=== PATIENT | male | born 1945 | race Caucasian/White ===

== ENCOUNTER → 2017-11-21 10:15 | Outpatient (CLI) | payer MEDICARE, SELFPAY ==
--- NOTE | 2017-11-21 | DI.US.S_ITS ---
PROCEDURE: US ABDOMEN COMPLETE INDICATIONS: CHRONIC VIRAL HEP C TECHNIQUE: Real-time scanning was performed of the abdominal and retroperitoneal organs, with image documentation. COMPARISON: None. FINDINGS: Liver: Liver is normal in size and homogeneous in echotexture. There are 2 liver cysts, one superiorly on the right measuring up to 1.2 cm and the second inferiorly at the left hepatic lobe measuring only 7 mm area there is a focal hyperechoic structure at the margin of the falciform ligament measuring 8 x 7 x 9 mm anteriorly, most likely a focal small hemangioma Gallbladder: The gallbladder appears normal Biliary ducts: Intrahepatic bile ducts are non-dilated. Extrahepatic bile duct caliber measures 8.0 mm. Normal is 6-7 mm or less in diameter, or 10 mm or less post-cholecystectomy. Pancreas: Visualized portions of the pancreas are sonographically normal. Spleen: Spleen is normal in size and homogeneous in echotexture. Kidneys: Kidneys are normal in size and echotexture. Right kidney measures 10.9 cm long; left kidney measures 11.5 cm long. No hydronephrosis or nephrolithiasis. No solid masses. 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 Aorta: Visualized aorta is normal in caliber at less than 3 cm. Iliacs: Not seen due to bowel gas IVC: Intrahepatic inferior vena cava is patent. Miscellaneous: No free abdominal fluid. IMPRESSION: A small anterior rounded 7 x 8 x 9 mm subcapsular hyperechoic focus within the liver parenchyma adjacent to the fissure for the falciform ligament is most likely a hemangioma. No additional similar hepatic structures are found. If clinically desired this could be further assessed in 3-6 months by ultrasound to confirm stability over time. 2 simple hepatic cysts are seen measuring up to 1.2 cm in maximal dimension. No followup recommended. 3. Incidental note made of a hyperechoic small focus measuring up to 10 mm at the superior right renal margin consistent with a small angiomyolipoma. No followup recommended. 4. No evidence of hepatic cirrhosis or portal hypertension. Dictated by: Pollo Waddell M.D. on 11/21/2017 at 10:55 Approved by: Pollo Waddell M.D. on 11/21/2017 at 11:29
== END ==
PROVIDERS: Visit Provider Internal Medicine
DX: B18.2 Chronic viral hepatitis C (principal); K76.89 Other specified diseases of liver
CPT/HCPCS: 76700

== ENCOUNTER 2019-03-31 12:03 | Emergency (ER) | payer OTHER, SELFPAY ==
[2019-03-31 12:11] VITALS: BP 156/67; PULSE 70; RESP 16; TEMP 37.2; O2SAT 94; BMI 19.0
[2019-03-31] MEDS: TET,DIPH,PERTUSS(ACELL),VAC/PF 0.5 ML SYRINGE IM (12:26)
[2019-03-31 13:10] VITALS: BP 182/77; PULSE 94; RESP 18; O2SAT 96
[2019-03-31] MEDS: BACITRACIN OINT 0.9 GM PCKT 1 APPLIC TOP (13:29)
[2019-03-31 13:42] VITALS: BP 177/78; PULSE 65; O2SAT 96
--- NOTE | 2019-03-31 13:45 | ED.WOUNDLAC ---
HPI - Wound/Laceration <BYRAN Cardozo - Last Filed: 03/31/19 14:17> General Chief Complaint: Wound/Laceration Stated Complaint: Cut Left Index Finger Time Seen by Provider: 03/31/19 12:15 Source: patient Mode of arrival: Ambulatory Limitations: no limitations History of Present Illness HPI narrative: This is a 73-year-old gentleman, smoker, who presents to ED with avulsion wound on his left index middle phalange 30 minutes prior coming into ED from a clean scissor. Patient reports unknown last tetanus immunization. Right dominant hand. Patient was cutting a fabric with a scissor and accidentally cut his affected finger. Patient denies difficulty with flexing and extending his fingers. Reports intact sensation. No active bleeding at this time and patient applied Band-Aid before coming into ED. Related Data Home Medications Medication Instructions Recorded Confirmed albuterol sulfate 2 puff INHALATION Q6H PRN 03/31/19 03/31/19 budesonide-formoterol [Symbicort] 2 puff INHALATION BID 03/31/19 03/31/19 doxazosin 8 mg PO QPM 03/31/19 03/31/19 doxycycline monohydrate 100 mg PO BIDX7 03/31/19 03/31/19 finasteride 5 mg PO DAILY 03/31/19 03/31/19 folic acid 1 mg PO DAILY 03/31/19 03/31/19 mirtazapine 45 mg PO QPM 03/31/19 03/31/19 mupirocin 1 applic TOPICAL DIRECTED 03/31/19 pramipexole 0.5 mg PO QPM 03/31/19 03/31/19 tiotropium bromide [Spiriva with 18 mcg INHALATION DAILY 03/31/19 03/31/19 HandiHaler] tramadol 50 mg PO BID PRN 03/31/19 03/31/19 Allergies Allergy/AdvReac Type Severity Reaction Status Date / Time No Known Drug Allergies Allergy Verified 03/31/19 12:11 Review of Systems <BRYAN Cardozo - Last Filed: 03/31/19 14:17> Review of Systems Narrative: General: Denies fever, chills, fatigue, malaise, sweats. HEENT: Denies sinus pain, ear pain, sore throat, difficulty swallowing, dizziness. Respiratory: Denies dyspnea, cough, wheezing, hemoptysis, sputum. Cardiovascular: Denies chest pain, palpitations, orthopnea, edema. Gastrointestinal: Denies nausea, vomiting, abdominal pain, diarrhea, constipation, melena. : Denies dysuria, frequency, incontinence, hematuria, urinary retention. Musculoskeletal: Denies weakness, joint pain or bony pain. Skin: See HPI Neurologic: Denies weakness, headache, numbness, change in speech, confusion, seizures, incoordination. Psychiatric: No concerning psychosocial issues. 12-point review of systems is negative except for those stated above. Patient History <BRYAN Cardozo - Last Filed: 03/31/19 14:17> Medical History Back pain (Acute) BPH (benign prostatic hyperplasia) (Acute) COPD (chronic obstructive pulmonary disease) (Acute) Surgical History History of colonoscopy (Acute) Social History Smoking Status: Current every day smoker Smoking Status: Current every day smoker alcohol intake frequency: 0-2 drinks per day Substance Use Type: does not use Exam <BRYAN Cardozo - Last Filed: 03/31/19 14:17> Narrative Exam Narrative: General appearance: well developed, well nourished, in no acute distress. Head: normocephalic, atraumatic, no scalp lesions, non-tender. ENT: Bilateral auditory canals and tympanic membranes clear. Hearing grossly intact. Nose without bleeding, purulent discharge, septal hematoma or deviation. Turbinate without erythema or swelling. Facial sinuses nontender to palpate. Mucous membrane moist, no mucosal lesion. Throat without erythema, tonsillar hypertrophy or exudate. Uvula in midline, airway patent. Neck/Thyroid: neck supple, full range of motion, no visible masses or meningeal signs. No JVD, non-tender without lymphadenopathy. Skin: 1cm avulsion injury to left hand index middle radial aspect of phalange. no suspicious rashes, lesions over other visible areas. Warm and dry and appropriate color for ethnicity. Heart: no clubbing, no cyanosis, no edema. Lungs: Breathing even and unlabored. No stridor. No accessory muscles used. Able to speak in full sentences. Chest: normal shape and expansion. Abdomen: non-obese, non-distended. Neurologic: alert and oriented. Cognitive exam, [employer] and PNS grossly intact on informal exam. Psych: good eye contact, normal affect. Initial Vital Signs Initial Vital Signs: Vital Signs Temperature 99.0 F 03/31/19 12:11 Pulse Rate 70 03/31/19 12:11 Respiratory Rate 16 03/31/19 12:11 Blood Pressure 156/67 H 03/31/19 12:11 Pulse Oximetry 94 03/31/19 12:11 Extrem Left upper extremity: hand Details: abnormal to inspection, neurosensory exam normal, tendon exam normal, tenderness, vascular exam Details: radial pulse present and normal capillary refill, normal ROM of fingers and other ( in radial aspect middle phalanx of 2nd digit); no foreign bodies <Kobe Flanagan DO - Last Filed: 03/31/19 14:18> Initial Vital Signs Initial Vital Signs: Vital Signs Temperature 99.0 F 03/31/19 12:11 Pulse Rate 70 03/31/19 12:11 Respiratory Rate 16 03/31/19 12:11 Blood Pressure 156/67 H 03/31/19 12:11 Pulse Oximetry 94 03/31/19 12:11 Scores <BRYAN Cardozo - Last Filed: 03/31/19 14:17> GCS Ariane coma scale eye opening: Spontaneous [place] coma scale verbal response: Orientated [place] coma scale motor response: Obey commands [place] coma scale total score: 15 Course <BRYAN Cardozo - Last Filed: 03/31/19 14:17> Orders Ordered: Discontinued Medications Bacitracin (Bacitracin) 1 applic TOP NOW ONE Stop: 03/31/19 12:46 Last Admin: 03/31/19 13:29 Dose: 1 applic Documented by: JUSTIN Diphtheria/Tetanus/Acell Pertussis (Adacel) 0.5 ml IM .ONCE ONE Stop: 03/31/19 12:22 Last Admin: 03/31/19 12:26 Dose: 0.5 ml Documented by: JUSTIN Vital Signs Vital signs: Vital Signs - 8 hr 03/31/19 12:11 03/31/19 13:10 03/31/19 13:42 Temperature 99.0 F Pulse Rate 70 94 H 65 Respiratory Rate 16 18 Blood Pressure 156/67 H 177/78 H Blood Pressure [Right Arm] 182/77 H Pulse Oximetry 94 96 96 <Kobe Flanagan DO - Last Filed: 03/31/19 14:18> Orders Ordered: Discontinued Medications Bacitracin (Bacitracin) 1 applic TOP NOW ONE Stop: 03/31/19 12:46 Last Admin: 03/31/19 13:29 Dose: 1 applic Documented by: JUSTIN Diphtheria/Tetanus/Acell Pertussis (Adacel) 0.5 ml IM .ONCE ONE Stop: 03/31/19 12:22 Last Admin: 03/31/19 12:26 Dose: 0.5 ml Documented by: JUSTIN Vital Signs Vital signs: Vital Signs - 8 hr 03/31/19 12:11 03/31/19 13:10 03/31/19 13:42 Temperature 99.0 F Pulse Rate 70 94 H 65 Respiratory Rate 16 18 Blood Pressure 156/67 H 177/78 H Blood Pressure [Right Arm] 182/77 H Pulse Oximetry 94 96 96 [facility] - Wound/Laceration <BRYNA Cardozo - Last Filed: 03/31/19 14:17> Differential Diagnosis Differential diagnosis: Likely avulsion of skin Medical Records Attestation: I reviewed the patient's medical records. [facility] Narrative Medical decision making narrative: Tetanus immunization was updated today. Avulsion wound on left radial aspect of 2nd middle phalange cleaned and dressed with bacitracin. Advised to keep the wound clean, dry and intact and monitor for signs and symptoms for infection. Patient was able to flex and extend affected finger without difficulty with intact sensation and radial pulse. Advised to follow up with PCP for wound recheck in 2-3 days. Return precautions were discussed with the patient and verbalized understanding and agrees with treatment plan. Discharge Plan Departure Patient Disposition: Home Clinical Impression: Avulsion of skin Discharge Date/Time: 03/31/19 13:43 Instructions: DI for Avulsion Laceration (Not Requiring Sutures) Activity Restrictions/Additional Instructions: You have been diagnosed with [of our avulsion injury on left index finger from cut from a scissor]. What to do: *Take your medications as directed. Please keep wound clean and dry all time. You can use antibiotic medication ointment and Band-Aid on affected site. Please monitor for infection. Watch for increasing redness, swelling, warmth, fever, purulent discharge, severe pain. *Follow up with your primary care provider in 2-3 days, call for an appointment. Let them know you were seen in the ED and that we asked you to be seen in follow up. *Return to ED if you have any new, worsening, or concerning symptoms, such as [above signs and symptoms for infection, chest pain, breathing difficulty, unable to tolerate fluids or any acute concerns. Prescriptions: No Action doxycycline monohydrate 100 mg tablet 100 mg PO BIDX7 RF: 0 tramadol 50 mg tablet 50 mg PO BID PRN (Reason: pain) RF: 0 doxazosin 8 mg tablet 8 mg PO QPM RF: 0 pramipexole 0.25 mg tablet 0.5 mg PO QPM RF: 0 mirtazapine 45 mg tablet 45 mg PO QPM RF: 0 folic acid 1 mg tablet 1 mg PO DAILY RF: 0 mupirocin 2 % ointment 1 applic TOPICAL DIRECTED RF: 0 albuterol sulfate 90 mcg/actuation HFA aerosol inhaler 2 puff INHALATION Q6H PRN (Reason: Wheezing) RF: 0 finasteride 5 mg tablet 5 mg PO DAILY RF: 0 Spiriva with HandiHaler 18 mcg capsule, w/inhalation device 18 mcg INHALATION DAILY RF: 0 Symbicort 160-4.5 mcg/actuation HFA aerosol inhaler 2 puff INHALATION BID RF: 0 Referrals: Arturo Mcmahan MD [Primary Care Provider] - <Kobe Flanagan, DO - Last Filed: 03/31/19 14:18> Sign Out Provider Sign Out Attestation: Dr Flanagan Co-Sign Statement: I was available for consultation during this patient's emergency department visit. This chart is signed by myself for administrative purposes only. I did not have direct contact with this patient during this visit. They were seen independently by the APC.
== END 2019-03-31 13:43 | disposition home or self-care (01) ==
PROVIDERS: Emergency Provider Nurse Practitioner Family; PCP Family Medicine
DX: S61.213A Laceration without foreign body of left middle finger without damage to nail, initial encounter (principal); W45.8XXA Other foreign body or object entering through skin, initial encounter; Z23 Encounter for immunization
CPT/HCPCS: 90471; 99283; 90715